=== PATIENT | female | born 2000 | race Hispanic/Latino ===

== ENCOUNTER → 2025-05-26 | Emergency (ER) | payer OTHER ==
--- OUTSIDE RECORDS SUMMARY | 2025-05-26 03:07 | XMS REPORT | Continuity of Care Document ---
Author Name Unknown Address [address] [place] [address] [facility] [place] Address [address] [place] [address] Care Team Providers Care Internet Specialist Name Role Phone PCP, PATIENT DOES NOT HAVE A Primary Care Physic KOBY Sousa Attending Clinician KOBY Colon Attending Clinician Koby Colon MD Attending Clinician [phone] PRESTON LUQUE Attending Clinician Anna ble 2, [facility] Attending Clinician Unavailable Doctor Unassigned, [place] Attending Clinician U navailable Payers Payer Name Policy Type Policy Number Effective Date Expirati on Date Source [place] [employer] [id number] 2025 00:00:00 Problems Condition Name Condition Details Condition Category Status Onset Date Resolution Date Last Treatment Date Treating Clinician Comments Source Normal , antepartum Normal , antepartum Disease Active 03-11 00:00: 00 [facility] Nausea/vom iting in Nausea/vom iting in Disease Resolve d 03-11 00:00: 00 2025-04-08 00:00:00 2025-04-08 14:09:49 [facility] Allergies, Adverse Reactions, Alerts Allergy Name Allergy Type Status Severity Reaction(s) Onset Date Inactive Date Treating Clinician Comments Source NO KNOWN ALLERGIE S Drug Class Active [facility] Social History Social Habit Start Date Stop Date Quantity Comments Source ASSERTION 2024-12-29 00:00:00 [facility] Alcoh[facility] intake 2025-05-16 00:00:00 2025-05-16 00:00:00 Ex-drinker (finding) [facility] History of Social function 2025-03-11 00:00:00 2025-03-11 00:00:00 [facility] Tobacco use and exposure 2025-02-11 00:00:00 2025-02-11 00:00:00 Smokeless tobacco non-user [facility] Sex assigned at 2000 00:00:00 2000 00:00:00 [facility] Smoking Status Start Date Stop Date Source Never smoked tobacco [facility] Medications Ordered Medication Name Filled Medication Name Start Date Stop Date Current Medication? Ordering Clinician Indication Dosage Frequency Signature (SIG) Comments Components Source ondansetron 4 mg disintegrat ing tablet 03-11 00:00: 00 Yes [id number] 4mg Take 1 tablet by mouth every 8 hours as needed for Nausea and Vomiting (N/V). [facility] Vit Comb.10-Iro n-FA 65-1 mg Tab 02-11 13:04: 40 Yes Take by mouth. [facility] Vital Signs Vital Name Observation Time Observation Value Comments S ource Systolic blood pressure 2025-05-16 13:36:00 122 mm[Hg] [facility] Diastolic blood pressure 2025-05-16 13:36:00 78 mm[Hg] [facility] Heart rate 2025-05-16 13:36:00 76 /min [facility] Body temperature 2025-05-16 13:36:00 36.78 Jordana [facility] Respiratory rate 2025-05-16 13:36:00 18 /min [facility] Body height 2025-05-16 13:36:00 152.4 cm [facility] Body weight 2025-05-16 13:36:00 67.495 kg [facility] BMI 2025-05-16 13:36:00 29.06 kg/m2 [facility] Heart rate 2025-04-08 18:32:00 83 /min [facility] Body temperature 2025-04-08 18:32:00 36.61 Jordana [facility] Respiratory rate 2025-04-08 18:32:00 18 /min [facility] Body height 2025-04-08 18:32:00 152.4 cm [facility] Body weight 2025-04-08 18:32:00 65.318 kg [facility] BMI 2025-04-08 18:32:00 28.12 kg/m2 [facility] Systolic blood pressure 2025-04-08 18:32:00 121 mm[Hg] [facility] Diastolic blood pressure 2025-04-08 18:32:00 73 mm[Hg] [facility] Systolic blood pressure 2025-03-11 18:32:00 118 mm[Hg] [facility] Diastolic blood pressure 2025-03-11 18:32:00 81 mm[Hg] [facility] Heart rate 2025-03-11 18:32:00 81 /min [facility] Body temperature 2025-03-11 18:32:00 36.67 Jordana [facility] Respiratory rate 2025-03-11 18:32:00 18 /min [facility] Body height 2025-03-11 18:32:00 152.4 cm [facility] Body weight 2025-03-11 18:32:00 65.681 kg [facility] BMI 2025-03-11 18:32:00 28.28 kg/m2 [facility] Systolic blood pressure 2025-02-11 18:07:00 118 mm[Hg] [facility] Diastolic blood pressure 2025-02-11 18:07:00 76 mm[Hg] [facility] Heart rate 2025-02-11 18:07:00 81 /min Un[facility] Body temperature 2025-02-11 18:07:00 36.33 Jordana [facility] Body height 2025-02-11 18:07:00 152.4 cm [facility] Body weight 2025-02-11 18:07:00 68.04 kg [facility] BMI 2025-02-11 18:07:00 29.29 kg/m2 [facility] Procedures Procedure Date / Time Performed Performing Clinician Source POCT URINALYSIS W/O SPECIFIC GRAVITY 2025-05-16 00:00:00 Darryl [facility] SECOND AND THIRD TRIMESTER ULTRASOUND 2025-05-09 [facility]:15[facility] W/O SPECIFIC GRAVITY 2025-04-08 00:00:00 Darryl [facility] SCANNED LAB RESULTS 2025-03-29 16:19:31 Doctor Payton olmstead, [place] [facility] SCANNED LAB RESULTS 2025-03-22 16:29:44 Doctor Payton olmstead, [place] [facility] POCT URINALYSIS W/O SPECIFIC GRAVITY 2025-03-11 00:00:00 Darryl [facility] US OB TRANSVAGINAL 2025-02-11 18:34:55 Josiane Andrewspennie [facility] POCT TEST 2025-02-11 18:15:00 Yesica Andrewssol [facility] POCT URINALYSIS W/O SPECIFIC GRAVITY 2025-02-11 18:15:00 Darryl [facility] Encounters Start Date/Time End Date/Time Encounter Type Admission Type Attending Clinicians Care Facility Care Department Encounter ID Source 2025-05-16 08:45:00 2025-05-16 08:47:03 [facility] 1.2.840.114 350.1.13.10 4.2.7.2.686 [id number] [facility] 2025-04-10 00:00:00 2025-05-14 18:57:17 Patient Secure Msg Koby [facility] 1.2.840.114 350.1.13.10 4.2.7.2.686 [id number] [facility] 2025-05-09 14:00:00 2025-05-09 15:12:13 Supervisory Aide Visit R PRESTON LUQUE [facility] NURSE [facility] 1.2.840.114 350.1.13.10 4.2.7.2.686 [id number] [facility] 2025-04-08 14:00:00 2025-04-08 14:00:00 Supervisory Aide Visit R 2, [facility] Yesica Yorksol 2, Adc Lab [facility] 1.2.840.114 350.1.13.10 4.2.7.2.686 [id number] [facility] 2025-04-08 13:45:00 2025-04-08 13:45:35 Routine Visit R Yesica Yorksol [facility] 1.2.840.114 350.1.13.10 4.2.7.2.686 [id number] [facility] 2025-03-29 00:00:00 2025 02:03:27 Orders Only Doctor Unassigned, [place] Doctor Unassigned, [place] [facility] (ANGEL LU[facility] 1.2.840.114 350.1.13.10 4.2.7.2.686 [id number] [facility] 2025-03-22 00:00:00 2025-03-23 02:04:20 Orders Only Doctor Unassigned, [place] Doctor Unassigned, [place] [facility] ([facility] 1.2.840.114 350.1.13.10 4.2.7.2.686 [id number] [facility] 2025-03-21 00:00:00 2025-03-21 14:51:49 Telephone [place], Koby [facility] 1.2.840.114 350.1.13.10 4.2.7.2.686 [id number] [facility] 2025-02-12 00:00:00 2025-03-19 18:32:51 Patient Secure Msg [place]Yamini s, Koby [facility] 1.2.840.114 350.1.13.10 4.2.7.2.686 [id number] [facility] 2025-02-12 00:00:00 2025-03-19 18:32:00 Patient Secure Msg Newton-Yamini s, Koby [facility] 1.2.840.114 350.1.13.10 4.2.7.2.686 [id number] [facility] 2025-02-14 00:00:00 2025-03-19 18:31:06 Patient Secure Msg [place]i s, Koby [facility] 1.2.840.114 350.1.13.10 4.2.7.2.686 [id number] [facility] 2025-03-15 09:15:00 2025-03-15 09:15:00 Supervisory Aide Visit R NEWTON-YAMINI S, KOBY NE[place]I S, KOBY [facility] 1.2.840.114 350.1.13.10 4.2.7.2.686 [id number] [facility] 2025-03-11 14:15:00 2025-03-11 14:15:00 Outpatient R NEWTON-YAMINI S, KOBY [facility], [facility] [id number] [facility] 2025-03-11 13:45:00 2025-03-11 13:50:35 Routine Visit R NEWTON-YAMINI S, KOBY [place], [facility] 1.2.840.114 350.1.13.10 4.2.7.2.686 [id number] [facility] 2025-02-11 13:30:00 2025-02-11 13:45:00 Supervisory Aide Visit R 2, [facility] [place]-Yamini s, Koby 2, Adc Lab [facility] 1.2.840.114 350.1.13.10 4.2.7.2.686 [id number] [facility] 2025-02-11 13:00:00 2025-02-11 13:27:30 Initial Visit R NEWTON-YAMINI S, KOBY NEWTON-YAMINI S, KOBY [facility] 1.2.840.114 350.1.13.10 4.2.7.2.686 [id number] [facility] 2025-02-11 09:00:00 2025-02-11 09:00:00 Outpatient R NEWTON-YAMINI S, KOBY NEWT[place]-YAMINI S, KOBY [facility] [id number] [facility] Results Test Description Test Time Test Comments Results Result Co mments Source [facility] Specific [id number] 18:33:00* Test Item Value Reference Range Interpretation Comme nts POCT PH U (test code = 3254) n/a 5-8 POCT U LEUK EST (test code = 3263) n/a Negative - N egative POCT U NIT (test code = 3262) n/a Negative - Negati ve POCT U PROT (test code = 3259) neg Negative - Negat kayy POCT U GLU (test code = 3256) neg Negative - Negati ve POCT U KETONE (test code = 3258) n/a Negative - Neg ative POCT U BLD (test code = 3257) n/a Negative - Negati ve [facility] [id number] 16:19:31Ordered by an unspecified provider.[facility] 2025-03-22 16:29:44Ordered by an unspecified provider.[facility] w/o Specific [id number] 18:30:00* Test Item Value Reference Range Interpretation Comme nts POCT PH U (test code = 3254) n/a 5-8 POCT U LEUK EST (test code = 3263) n/a Negative - Negative POCT U NIT (test code = 3262) n/a Negative - Negati ve POCT U PROT (test code = 3259) negative Negative - Negat kayy POCT U GLU (test code = 3256) normal Negative - Negati ve POCT U KETONE (test code = 3258) n/a Negative - Neg ative POCT U BLD (test code = 3257) n/a Negative - Negati ve [facility]/o Specific [id number] 18:15:00* Test Item Value Reference Range Interpretation Comme nts POCT PH U (test code = 3254) na 5-8 POCT U LEUK EST (test code = 3263) na Negative - N egative POCT U NIT (test code = 3262) na Negative - Negati ve POCT U PROT (test code = 3259) neg Negative - Negat kayy POCT U GLU (test code = 3256) neg Negative - Negati ve POCT U KETONE (test code = 3258) na Negative - Neg ative POCT U BLD (test code = 3257) na Negative - Negati ve [facility] [id number] 18:15:00* Test Item Value Reference Range Interpretation Comme nts POCT PREG (test code = 1605) Positive On board controls acceptable with C Line (test code = 3574) Yes POCT PREG LOT # (test code = 3575) POCT PREG TEST DATE ( test code = 3576) [facility] Notes Date/Time Note Provider Source 2025-05-16 08:45:00 Age: [age] year old GA: 21w5d ASSESSMENT: Lesvia Castillo is a 25 year old at 21w5d who presents for routine visit. Patient Active Problem List Diagnosis Normal , antepartum PLAN 1. Normal , antepartum (Primary) --low risk NIPS -carrier testing neg --MSAFP Nl 2. 21 weeks gestation of - POCT Urinalysis w/o Specific [place] --Anatomy US reviewed normal --Discussed with patient plan for lab testing @ 25-26 weeks --All questions answered T [facility] 2025-05-09 14:00:00 Reviewed recent ultrasound results, show: Normal anatomy, 57%ile. T [facility] 2025-04-08 14:00:00 Images from the original note were not included. Venipuncture collection performed by clean technique on the left anticubitus. Total of 1 attempts were made. Slight pressure and a bandage/dressing were applied to the site(s). The patient experienced no complications. The following specimens were processed according to instructions and sent to [facility] laboratories per lab order on 04/08/2025 : LT BLUE SST 1 RED LAV PPT DK GREEN (LiHep) DK GREEN (SodH) VILLAGRAN DK BLUE (K2) DK BLUE (S) ACD Blood Culture NIPT/NTD Patient has been identified by and name and was provided with cup, antiseptic towelette, and clean catch instructions. 2 urine specimen(s) sent. Unpreserved 1 Urine Culture 1 Aptima tube Other urine [facility] 2025-04-08 13:45:00 Age: [age] year old GA: 16w2d ASSESSMENT: Lesvia Castillo is a 25 year old at 16w2d who presents for routine visit. Patient Active Problem List Diagnosis Normal , antepartum PLAN 1. Normal , antepartum (Primary) --low risk NIPS --carrier testing neg - POCT Urinalysis w/o Specific [place] - CONSULT MATERNAL MEDICINE ULTRASOUND Multiple Gestation: No 2. 16 weeks gestation of - POCT Urinalysis w/o Specific [place] - Alpha Fetoprotein-Maternal Ser; Future - CONSULT MATERNAL MEDICINE ULTRASOUND Multiple Gestation: No [facility] 2025-03-28 14:06:17 Received [facility] results via fax. Stamped and will be scanned/uploaded into pt's chart. ARLEN RIOS RN 03/28/2025 2:06 PM Arlen Rios RN [facility] 2025-03-21 14:50:17 Panorama results received via fax. Stamped and uploaded to chart. TeraView[employer] message sent Bi Martinez RN 03/21/2025 2:50 PM Bi Martinez RN [facility] 2025-03-15 09:15:00 Essence Kit collection only. Pt was notified about the UX sample collection. Pt wanted to wait until next appointment for collection. Eloise Sharma 03/15/2025 11:28 AM Eloise Sharma [facility] 2025-03-11 13:45:00 Age: [age] year old GA: 12w2d ASSESSMENT: Lesvia Castillo is a 24 year old at 12w2d who presents for routine visit. Patient Active Problem List Diagnosis Normal , antepartum Nausea/vomiting in PLAN 1. Normal , antepartum (Primary) --reviewed ob labs - POCT Urinalysis w/o Specific [place] - CONSULT MATERNAL MEDICINE ULTRASOUND Multiple Gestation: No; Preferred Location: [place] 2. 12 weeks gestation of - POCT Urinalysis w/o Specific [place] - CONSULT MATERNAL MEDICINE ULTRASOUND Multiple Gestation: No; Preferred Location: [place] 3. Nausea/vomiting in --pt interested in medication - ondansetron 4 mg disintegrating tablet; Take 1 tablet by mouth every 8 hours as needed for Nausea and Vomiting (N/V). Dispense: 20 tablet; Refill: 1 [facility] 2025-02-11 13:30:00 Images from the original note were not included. Venipuncture collection performed by clean technique on the left anticubitus. Total of 1 attempts were made. Slight pressure and a bandage/dressing were applied to the site(s). The patient experienced no complications. The following specimens were processed according to instructions and sent to [facility] laboratories per lab order on 02/11/2025 : LT BLUE SST 3 RED 1 LAV 2 PPT DK GREEN (LiHep) DK GREEN (SodH) VILLAGRAN DK BLUE (K2) DK BLUE (S) ACD Blood Culture NIPT/NTD [facility]
== END ==
LOC: ER 03:01
DX: Z02.9 Encounter for administrative examinations, unspecified (principal)